=== PATIENT | female | born 1990 | race African-American/Black ===

== ENCOUNTER 2018-09-22 10:22 | Emergency (ER) | payer SELFPAY ==
[~2018-09-22] VITALS: Ht 167.6 cm; Wt 68.0 kg
[2018-09-22] MEDS ORDERED: ONDANSETRON HCL 4MG/2ML INJ IV STA (11:22)
[2018-09-22] MEDS ORDERED: SODIUM CHLORIDE 0.9% 1,000 ML IV ONE (11:22)
[2018-09-22 11:56] LABS: CLARITY URINE CLEAR (CLEAR); COLOR URINE YELLOW (YELLOW); KETONES URINE NEGATIVE (NEGATIVE); LEUKOCYTE ESTERASE URINE 1+ (NEGATIVE); NITRITE URINE NEGATIVE (NEGATIVE); OCCULT BLOOD URINE NEGATIVE (NEGATIVE); PH URINE 6.5 (4.5-8.0); PROTEIN URINE NEGATIVE (NEGATIVE); SPECIFIC GRAVITY URINE 1.012 (1.005-1.030); UROBILINOGEN URINE 0.2 E.U./dL (0.2-1.0)
[2018-09-22 12:15] LABS: BASOPHILS % 0.7 % (0.0-2.0); EOSINOPHILS % 0.2 % (0.0-5.0); HEMOGLOBIN. 11.8 g/dL (12.0-16.0); LYMPHOCYTES % 38.9 % (20.0-50.0); MEAN CORPUSCULAR HEMOGLOBIN 26.4 pg (28.0-32.0); MEAN CORPUSCULAR VOLUME 80.4 fL (81.0-99.0); NEUTROPHILS % 47.2 % (40.0-76.0); PLATELET 338 x1000/uL (130-400); RED BLOOD CELL COUNT 4.48 mill/uL (4.2-5.4); RED CELL DISTRIBUTION WIDTH 15.2 % (11.6-14.6)
[2018-09-22 12:23] LABS: CHLORIDE 104 mEq/L (98-107); PROTHROMBIN TIME 10.5 sec (9.6-11.0)
[2018-09-22] MEDS: MORPHINE SULFATE 4 MG/ML CPJ (NOT FOR IM USE) IV ONE ×2 (12:39→12:43)
[2018-09-22 14:50] VITALS: BP 137/82
== END 2018-09-22 14:53 | disposition home or self-care (01) ==
LOC: ER 10:48
DX: R10.31 Right lower quadrant pain (principal); N39.0 Urinary tract infection, site not specified; K59.00 Constipation, unspecified; N83.201 Unspecified ovarian cyst, right side; Z88.0 Allergy status to penicillin
CPT/HCPCS: 36415; 74176; 80053; 81003; 81025; 83690; 85025; 85610; 96374; 96375; 99284; J2270; J2405; J7030